=== PATIENT | male | born 1995 | race Caucasian/White ===

== ENCOUNTER 2016-08-01 11:50 | Emergency (ER) | payer OTHER ==
[~2016-08-01] VITALS: Ht 182.9 cm; Wt 89.1 kg
[2016-08-01 11:55] VITALS: TEMP 97.9
[2016-08-01] MEDS ORDERED: NORCO 325 MG-51 TAB PO (14:33)
[2016-08-01] MEDS ORDERED: CEPHALEXIN500 M1 PO (14:33)
[2016-08-01] MEDS ORDERED: ZOFRAN 4MG T4 MG/TAB PO (14:59)
[2016-08-01 15:00] VITALS: BP 136/63; PULSE 77
== END 2016-08-01 15:00 | disposition home or self-care (01) ==
LOC: COL.ER 11:50
DX: S02.2XXA Fracture of nasal bones, initial encounter for closed fracture (principal); S01.21XA Laceration without foreign body of nose, initial encounter; Y04.0XXA Assault by unarmed brawl or fight, initial encounter; Y92.414 Local residential or business street as the place of occurrence of the external cause
CPT/HCPCS: J1170

== ENCOUNTER 2016-08-03 00:50 | Emergency (ER) | payer OTHER ==
[~2016-08-03] VITALS: Ht 182.9 cm; Wt 88.6 kg
[~2016-08-03 00:50] MED LIST: CEPHALEXIN500 M1 PO; NORCO 325 MG-51 TAB PO; ZOFRAN 4MG T4 MG/TAB PO
[2016-08-03 00:53] VITALS: BP 148/91; TEMP 98.2
[2016-08-03] MEDS ORDERED: ULTRAM 50MG TAB50 MG PO (01:09)
[2016-08-03] MEDS ORDERED: PERCOCET 325 MG1 TA2 PO (01:09)
[2016-08-03 01:18] VITALS: PULSE 75
== END 2016-08-03 01:19 | disposition home or self-care (01) ==
LOC: COL.ER 00:50
DX: S02.2XXD Fracture of nasal bones, subsequent encounter for fracture with routine healing (principal); Y04.0XXD Assault by unarmed brawl or fight, subsequent encounter; S01.21XD Laceration without foreign body of nose, subsequent encounter
CPT/HCPCS: J1170

== ENCOUNTER 2016-09-06 17:15 | Emergency (ER) | payer OTHER ==
[~2016-09-06] VITALS: Ht 182.9 cm; Wt 90.9 kg
[~2016-09-06 17:15] MED LIST changes: +PERCOCET 325 MG1 TA2 PO; +ULTRAM 50MG TAB50 MG PO
[2016-09-06 17:16] VITALS: TEMP 98.1
[2016-09-06 17:49] LABS: PH 6 (5-8); SQUAMOUS EPITHELIAL 0-2 /hpf; URINE APPEARANCE Clear; URINE BACTERIA None Seen /hpf; URINE BILIRUBIN Negative (NEGATIVE); URINE BLOOD 3+ (NEGATIVE); URINE COLOR Yellow; URINE GLUCOSE Negative (NEGATIVE); URINE KETONE Negative (NEGATIVE); URINE RBC >50 /hpf; URINE UROBILINOGEN Negative (NEGATIVE); URINE WBC 0-2 /hpf
[2016-09-06 17:56] LABS: BASO % 0.4 % (0.0-2.0); EOS # 0.1 (0.0-0.7); EOS % 0.6 % (0-4.0); GRAN # 6.7 (1.4-6.5); GRAN % 69.9 % (42.2-75.2); HEMOGLOBIN 15.1 g/dl (13.5-18.0); LYMPH # 1.9 (1.2-3.4); LYMPH % 20.2 % (20.0-51.0); MEAN CELL VOLUME 87 fl (80.0-100.0); MEAN CORPUSCULAR HEMOGLOBIN 31 pg (27.0-31.0); MEAN CORPUSCULAR HGB CONC 35 g/dl (33.0-37.0); MEAN PLATELET VOLUME 10.3 fl (7.4-10.4); MONO # 0.8 (0.1-0.6); MONO % 8.6 % (1.7-9.3); PLATELET COUNT 274 K/mm3 (130-400); RED BLOOD COUNT 4.93 M/mm3 (4.20-5.60); REDCELL DISTRIBUTION WIDTH-CV 11.9 % (11.5-14.5); WHITE BLOOD COUNT 9.6 K/mm3 (4.8-10.8)
[2016-09-06 18:09] LABS: ALBUMIN 4.6 gm/dL (3.5-5.0); BILIRUBIN,TOTAL 0.7 mg/dL (0.0-1.0); CALCIUM 9.5 mg/dL (8.4-10.2); CREATININE, serum 0.88 mg/dL (0.66-1.25); POTASSIUM 3.8 mmol/L (3.4-5.0); TOTAL PROTEIN 8.4 gm/dL (6.4-8.2)
[2016-09-06 19:45] VITALS: BP 135/87; PULSE 87
== END 2016-09-06 19:45 | disposition home or self-care (01) ==
LOC: COL.ER 17:15
PROVIDERS: Emergency Medicine
DX: R10.31 Right lower quadrant pain (principal); N20.0 Calculus of kidney; Z87.442 Personal history of urinary calculi; K80.20 Calculus of gallbladder without cholecystitis without obstruction
CPT/HCPCS: J1885; J2765; J3010; J7030

== ENCOUNTER 2016-11-09 08:35 | Emergency (ER) | payer OTHER ==
[~2016-11-09] VITALS: Ht 182.9 cm; Wt 90.9 kg
[2016-11-09 08:37] VITALS: BP 138/83; PULSE 73; TEMP 98
[2016-11-09] MEDS ORDERED: ULTRAM 50MG TAB50 MG PO (09:34)
== END 2016-11-09 09:45 | disposition home or self-care (01) ==
LOC: COL.ER 08:35
DX: S61.012A Laceration without foreign body of left thumb without damage to nail, initial encounter (principal); W45.8XXA Other foreign body or object entering through skin, initial encounter; F17.210 Nicotine dependence, cigarettes, uncomplicated

== ENCOUNTER 2016-12-17 14:45 | Emergency (ER) | payer OTHER ==
[~2016-12-17] VITALS: Ht 182.9 cm; Wt 89.5 kg
[2016-12-17 14:48] VITALS: BP 136/77; TEMP 98.1
[2016-12-17] MEDS ORDERED: MOTRIN 800800 MG/TAB PO (18:02)
[2016-12-17 18:19] VITALS: PULSE 82
== END 2016-12-17 18:20 | disposition home or self-care (01) ==
LOC: COL.ER 14:45
DX: S90.111A Contusion of right great toe without damage to nail, initial encounter (principal); W22.8XXA Striking against or struck by other objects, initial encounter; Y92.89 Other specified places as the place of occurrence of the external cause
CPT/HCPCS: J1170; J2270

== ENCOUNTER 2017-01-21 18:03 | Emergency (ER) | payer OTHER ==
[~2017-01-21] VITALS: Ht 182.9 cm; Wt 90.9 kg
[~2017-01-21 18:03] MED LIST changes: +MOTRIN 800800 MG/TAB PO
[2017-01-21 18:05] VITALS: BP 144/79; PULSE 86; TEMP 100.1
[2017-01-21] MEDS ORDERED: BACTRIM DS 8001 TAB PO (19:33)
[2017-01-21] MEDS ORDERED: NORCO 325 MG-7.1 TAB PO (19:34)
== END 2017-01-21 19:43 | disposition home or self-care (01) ==
LOC: COL.ER 18:03
DX: L05.01 Pilonidal cyst with abscess (principal); F17.210 Nicotine dependence, cigarettes, uncomplicated; F12.90 Cannabis use, unspecified, uncomplicated

== ENCOUNTER 2017-06-20 16:14 | Inpatient (IN) | payer SELFPAY ==
[~2017-06-20] VITALS: Ht 182.9 cm; Wt 77.6 kg
[~2017-06-20 16:14] MED LIST changes: +BACTRIM DS 8001 TAB PO; +NORCO 325 MG-7.1 TAB PO
[2017-06-20 16:44] LABS: HEMATOCRIT 48.2 % (42.0-52.0); HEMOGLOBIN 16.3 g/dl (13.5-18.0); MEAN CELL VOLUME 87 fl (80.0-100.0); MEAN CORPUSCULAR HEMOGLOBIN 29 pg (27.0-31.0); MEAN CORPUSCULAR HGB CONC 34 g/dl (33.0-37.0); MEAN PLATELET VOLUME 9.8 fl (7.4-10.4); PLATELET COUNT 264 K/mm3 (130-400); RED BLOOD COUNT 5.56 M/mm3 (4.20-5.60); WHITE BLOOD COUNT 3.5 K/mm3 (4.8-10.8)
[2017-06-20 16:46] LABS: ADD PATHOLOGY DIFF REVIEW NO
[2017-06-20 16:53] LABS: ADJUSTED CALCIUM 9.2 mg/dL (8.4-10.2); ALBUMIN 4.9 gm/dL (3.5-5.0); BILIRUBIN,TOTAL 1.1 mg/dL (0.0-1.0); C-REACTIVE PROTEIN 0.8 mg/dL (0.0-0.9); CALCIUM 9.9 mg/dL (8.4-10.2); CREATININE, serum 0.86 mg/dL (0.66-1.25); POTASSIUM 3.9 mmol/L (3.4-5.0); TOTAL PROTEIN 8.5 gm/dL (6.4-8.2)
[2017-06-20 17:13] LABS: COLLECTION METHOD CLEAN CATCH
[2017-06-20 17:25] LABS: MUCOUS Present /lpf; PH 7 (5-8); SQUAMOUS EPITHELIAL None Seen /hpf; URINE APPEARANCE Clear; URINE BACTERIA None Seen /hpf; URINE BILIRUBIN Negative (NEGATIVE); URINE BLOOD Negative (NEGATIVE); URINE COLOR Yellow; URINE GLUCOSE Negative (NEGATIVE); URINE KETONE Negative (NEGATIVE); URINE LEUKOCYTE ESTERASE Negative (NEGATIVE); URINE PROTEIN(semi-quant) Negative (NEGATIVE); URINE RBC None Seen /hpf; URINE UROBILINOGEN Negative (NEGATIVE); URINE WBC None Seen /hpf
[2017-06-20 17:37] LABS: AMPHETAMINE URINE POSITIVE; BARBITURATES URINE NEGATIVE; BENZODIAZEPINES URINE NEGATIVE; BUPRENORPHINE URINE NEGATIVE; METHADONE URINE NEGATIVE; OPIATES URINE POSITIVE; OXYCODONE URINE NEGATIVE; PHENCYCLIDINE URINE NEGATIVE; PROPOXYPHENE URINE NEGATIVE; THC CANNABINOIDS URINE POSITIVE; TRICYCLIC ANTIDEPRESS URINE NEGATIVE
[2017-06-20 17:54] LABS: BAND 34 % (0-10); LYMPHOCYTE 10 % (20.0-51.0); METAMYELOCYTE 1 % (0-0); NEUTROPHILS 55 % (42.0-75.2); PLATELET ESTIMATE NORMAL (NORMAL); TOTAL CELLS COUNTED 100
[2017-06-20 21:50] VITALS: BP 119/65; PULSE 130; TEMP 99.6
[2017-06-21 03:59] LABS: CHLAMYDIA/TRACH by PCR Male NOT DETECTED; Neisseria Gon by PCR Male NOT DETECTED
[2017-06-21 05:38] VITALS: BP 134/83; PULSE 94; TEMP 98.4
[2017-06-21 07:00] LABS: CREATININE, serum 0.95 mg/dL (0.66-1.25); POTASSIUM 3.7 mmol/L (3.4-5.0)
[2017-06-21 07:08] LABS: HEMATOCRIT 37.2 % (42.0-52.0); MEAN CELL VOLUME 87 fl (80.0-100.0); MEAN CORPUSCULAR HEMOGLOBIN 29 pg (27.0-31.0); MEAN CORPUSCULAR HGB CONC 33 g/dl (33.0-37.0); MEAN PLATELET VOLUME 9.8 fl (7.4-10.4); PLATELET COUNT 203 K/mm3 (130-400); RED BLOOD COUNT 4.29 M/mm3 (4.20-5.60)
[2017-06-21 07:19] LABS: WHITE BLOOD COUNT 25.2 K/mm3 (4.8-10.8)
[2017-06-21 07:20] LABS: HEMOGLOBIN 12.4 g/dl (13.5-18.0)
[2017-06-21 07:21] LABS: ADD PATHOLOGY DIFF REVIEW NO
[2017-06-21 07:39] VITALS: BP 133/68; PULSE 90; TEMP 98.1
[2017-06-21 07:39] LABS: BAND 58 % (0-10); LYMPHOCYTE 9 % (20.0-51.0); NEUTROPHILS 28 % (42.0-75.2); TOTAL CELLS COUNTED 100
[2017-06-21 07:40] LABS: PLATELET ESTIMATE NORMAL (NORMAL)
[2017-06-21 07:56] LABS: HIV 1/2 Antibodies Non-Reactive; HIV-1p24 Antigen Non-Reactive
[2017-06-21 11:36] VITALS: BP 126/70; PULSE 81; TEMP 98.1
[2017-06-21 15:43] VITALS: BP 132/56; PULSE 78; TEMP 98.1
[2017-06-21 20:39] VITALS: BP 133/74; PULSE 96; TEMP 98.3
[2017-06-22 00:17] VITALS: BP 128/78; PULSE 63; TEMP 98.4
[2017-06-22 05:14] VITALS: BP 114/64; PULSE 55; TEMP 97.7
[2017-06-22 06:37] LABS: BASO # 0.1 (0.0-0.2); BASO % 0.4 % (0.0-2.0); EOS # 0.2 (0.0-0.7); EOS % 1.5 % (0-4.0); GRAN # 9.8 (1.4-6.5); LYMPH # 3.4 (1.2-3.4); LYMPH % 22.9 % (20.0-51.0); MEAN CELL VOLUME 88 fl (80.0-100.0); MEAN CORPUSCULAR HGB CONC 33 g/dl (33.0-37.0); MEAN PLATELET VOLUME 11.2 fl (7.4-10.4); MONO # 1.2 (0.1-0.6); MONO % 8.3 % (1.7-9.3); PLATELET COUNT 154 K/mm3 (130-400); RED BLOOD COUNT 3.94 M/mm3 (4.20-5.60); WHITE BLOOD COUNT 14.9 K/mm3 (4.8-10.8)
[2017-06-22 06:38] LABS: HEMATOCRIT 34.6 % (42.0-52.0); HEMOGLOBIN 11.4 g/dl (13.5-18.0); MEAN CORPUSCULAR HEMOGLOBIN 29 pg (27.0-31.0)
[2017-06-22 06:59] LABS: CALCIUM 8.1 mg/dL (8.4-10.2); CREATININE, serum 0.87 mg/dL (0.66-1.25); POTASSIUM 3.2 mmol/L (3.4-5.0)
[2017-06-22 07:39] VITALS: BP 127/79; PULSE 57; TEMP 97.8
[2017-06-22 11:26] VITALS: BP 135/81; PULSE 51; TEMP 97.8
[2017-06-22] MEDS ORDERED: NORCO 325 MG-51 TAB PO (14:35)
[2017-06-22] MEDS ORDERED: LEVAQUIN 5500 MG/TA1 PO (14:35)
== END 2017-06-22 15:00 | disposition left against medical advice (07) | DRG 728 ==
LOC: COL.ER 16:14 → MEDICAL 20:35 → PEDS 06-21 07:55 → MEDICAL 06-21 07:55
PROVIDERS: Emergency Medicine; Internal Medicine; Nurse Practitioner; Physician Assistant
DX: N45.1 Epididymitis (principal); R00.0 Tachycardia, unspecified; F11.10 Opioid abuse, uncomplicated; F15.10 Other stimulant abuse, uncomplicated; F14.10 Cocaine abuse, uncomplicated; F12.10 Cannabis abuse, uncomplicated
CPT/HCPCS: 86780; 99222-AI; 99239; G0378; J1170; J1650; J1885; J2060; J2405; J2543; J3370; J7030; J7050; Q9967

== ENCOUNTER 2017-11-20 15:13 | Emergency (ER) | payer SELFPAY ==
[~2017-11-20] VITALS: Ht 182.9 cm; Wt 72.7 kg
[~2017-11-20 15:13] MED LIST changes: +LEVAQUIN 5500 MG/TA1 PO
[2017-11-20 15:17] VITALS: BP 134/92; PULSE 122; TEMP 98.1
[2017-11-20] MEDS ORDERED: SEPTRA DS 8001 TAB PO ×2 (16:08→16:31)
[2017-11-20] MEDS ORDERED: ULTRAM 50MG TAB50 MG PO (16:08)
[2017-11-20] MEDS ORDERED: PERCOCET 325 MG1 TA2 PO (16:31)
== END 2017-11-20 16:34 | disposition home or self-care (01) ==
LOC: COL.ER 15:13
DX: L05.01 Pilonidal cyst with abscess (principal); B19.20 Unspecified viral hepatitis C without hepatic coma; F17.210 Nicotine dependence, cigarettes, uncomplicated; F12.90 Cannabis use, unspecified, uncomplicated; Z98.890 Other specified postprocedural states

== ENCOUNTER 2017-12-09 01:50 | Emergency (ER) | payer SELFPAY ==
[~2017-12-09] VITALS: Ht 182.9 cm; Wt 72.8 kg
[~2017-12-09 01:50] MED LIST changes: +SEPTRA DS 8001 TAB PO
[2017-12-09 01:53] VITALS: BP 130/95; PULSE 99; TEMP 97.4
[2017-12-09] MEDS ORDERED: BACTRIM DS 8001 TAB PO (02:29)
== END 2017-12-09 03:05 | disposition home or self-care (01) ==
LOC: COL.ER 01:50
DX: L02.413 Cutaneous abscess of right upper limb (principal); F17.210 Nicotine dependence, cigarettes, uncomplicated
CPT/HCPCS: J1170

== ENCOUNTER 2017-12-09 18:33 | Emergency (ER) | payer SELFPAY ==
[~2017-12-09] VITALS: Ht 182.9 cm; Wt 72.7 kg
[2017-12-09 18:35] VITALS: TEMP 98
[2017-12-09 19:18] VITALS: BP 141/77
[2017-12-09 21:50] VITALS: PULSE 82
== END 2017-12-09 21:51 | disposition home or self-care (01) ==
LOC: COL.ER 18:33
DX: L02.414 Cutaneous abscess of left upper limb (principal); F17.210 Nicotine dependence, cigarettes, uncomplicated; F12.90 Cannabis use, unspecified, uncomplicated
CPT/HCPCS: J0696; J7030

== ENCOUNTER 2018-02-25 23:01 | Emergency (ER) | payer SELFPAY ==
[~2018-02-25] VITALS: Ht 182.9 cm; Wt 69.5 kg
[2018-02-25 23:12] VITALS: TEMP 98.5
[2018-02-25 23:56] LABS: BASO # 0.1 (0.0-0.2); BASO % 0.4 % (0.0-2.0); EOS # 0.1 (0.0-0.7); EOS % 0.8 % (0-4.0); GRAN # 6.1 (1.4-6.5); GRAN % 54.6 % (42.2-75.2); HEMOGLOBIN 12.5 g/dl (13.5-18.0); LYMPH # 3.7 (1.2-3.4); LYMPH % 32.9 % (20.0-51.0); MEAN CELL VOLUME 85 fl (80.0-100.0); MEAN CORPUSCULAR HEMOGLOBIN 29 pg (27.0-31.0); MEAN CORPUSCULAR HGB CONC 34 g/dl (33.0-37.0); MEAN PLATELET VOLUME 9.4 fl (7.4-10.4); MONO # 1.2 (0.1-0.6); MONO % 10.7 % (1.7-9.3); PLATELET COUNT 281 K/mm3 (130-400); RED BLOOD COUNT 4.32 M/mm3 (4.20-5.60); REDCELL DISTRIBUTION WIDTH-CV 14.3 % (11.5-14.5)
[2018-02-25 23:57] LABS: HEMATOCRIT 36.9 % (42.0-52.0)
[2018-02-26 00:15] LABS: ERYTHROCYTE SEDIMENTATION RATE 6 mm/hr (0-15)
[2018-02-26 00:56] VITALS: BP 146/72; PULSE 89
== END 2018-02-26 01:06 | disposition home or self-care (01) ==
LOC: COL.ER 23:01
PROVIDERS: Nurse Practitioner
DX: M25.531 Pain in right wrist (principal); F17.210 Nicotine dependence, cigarettes, uncomplicated; Z86.19 Personal history of other infectious and parasitic diseases
CPT/HCPCS: J1170

== ENCOUNTER 2018-03-12 18:40 | Emergency (ER) | payer SELFPAY ==
[~2018-03-12] VITALS: Ht 182.9 cm; Wt 70.0 kg
[2018-03-12 18:44] VITALS: BP 156/85; PULSE 96; TEMP 98.7
[2018-03-12] MEDS ORDERED: CEPHALEXIN500 M1 PO (19:12)
[2018-03-12] MEDS ORDERED: BACTRIM DS 8001 TAB PO (19:12)
== END 2018-03-12 19:23 | disposition home or self-care (01) ==
LOC: COL.ER 18:40
DX: L03.115 Cellulitis of right lower limb (principal); L03.116 Cellulitis of left lower limb; F17.210 Nicotine dependence, cigarettes, uncomplicated

== ENCOUNTER 2018-03-18 18:34 | Inpatient (IN) | payer OTHER ==
[~2018-03-18] VITALS: Ht 182.9 cm; Wt 173.9 kg
[2018-03-18] VITALS (51 sets, daily range): BP systolic 100; BP diastolic 53; PULSE 91; TEMP 100.3; O2SAT 65–100
[2018-03-18 18:45] LABS: HEMATOCRIT 36.1 % (42.0-52.0); HEMOGLOBIN 12.6 g/dl (13.5-18.0); MEAN CELL VOLUME 84 fl (80.0-100.0); MEAN CORPUSCULAR HEMOGLOBIN 29 pg (27.0-31.0); MEAN CORPUSCULAR HGB CONC 35 g/dl (33.0-37.0); MEAN PLATELET VOLUME 8.9 fl (7.4-10.4); PLATELET COUNT 265 K/mm3 (130-400); REDCELL DISTRIBUTION WIDTH-CV 13.2 % (11.5-14.5)
[2018-03-18 19:06] LABS: ALANINE AMINOTRANSFERASE 42 U/L (21-72); ALBUMIN 3.4 gm/dL (3.5-5.0); ALCOHOL(ethanol),MEDICAL < 10 mg/dL; ALKALINE PHOSPHATASE 104 U/L (50-136); ANION GAP 11 mmol/L (7-16); AST,SGOT 48 U/L (15-37); BILIRUBIN,TOTAL 1.1 mg/dL (0.0-1.0); BLOOD UREA NITROGEN 24 mg/dL (9-20); C-REACTIVE PROTEIN 2.4 mg/dL (0.0-0.9); CALCIUM 8.4 mg/dL (8.4-10.2); CARBON DIOXIDE 22 mmol/L (22-30); CHLORIDE 96 mmol/L (98-107); CREATINE KINASE 188 U/L (55-170); CREATININE, serum 1.14 mg/dL (0.66-1.25); GLUCOSE 92 mg/dL (74-106); POTASSIUM 3.5 mmol/L (3.4-5.0); SODIUM 129 mmol/L (137-145); TOTAL PROTEIN 6.9 gm/dL (6.4-8.2)
[2018-03-19] VITALS (661 sets, daily range): BP systolic 85–99; BP diastolic 31–54; PULSE 68–95; TEMP 97.9–99.5; O2SAT 66–100
[2018-03-19 05:55] LABS: HEMOGLOBIN 10.7 g/dl (13.5-18.0); MEAN CELL VOLUME 86 fl (80.0-100.0); MEAN CORPUSCULAR HEMOGLOBIN 29 pg (27.0-31.0); MEAN CORPUSCULAR HGB CONC 34 g/dl (33.0-37.0); MEAN PLATELET VOLUME 9.2 fl (7.4-10.4); PLATELET COUNT 232 K/mm3 (130-400); RED BLOOD COUNT 3.66 M/mm3 (4.20-5.60); REDCELL DISTRIBUTION WIDTH-CV 13.7 % (11.5-14.5)
[2018-03-19 05:58] LABS: HEMATOCRIT 31.5 % (42.0-52.0)
[2018-03-19 06:08] LABS: CREATININE, serum 1.22 mg/dL (0.66-1.25); POTASSIUM 3.6 mmol/L (3.4-5.0)
[2018-03-19 06:57] LABS: BAND 56 % (0-10); LYMPHOCYTE 3 % (20.0-51.0); NEUTROPHILS 40 % (42.0-75.2); PLATELET ESTIMATE NORMAL (NORMAL)
[2018-03-19 09:35] LABS: TRICYCLIC ANTIDEPRESS URINE NEGATIVE
[2018-03-19 10:43] LABS: COLLECTION METHOD CLEAN CATCH
[2018-03-19 10:48] LABS: MUCOUS Present /lpf; PH 5 (5-8); SQUAMOUS EPITHELIAL None Seen /hpf; URINE APPEARANCE Clear; URINE BACTERIA None Seen /hpf; URINE BILIRUBIN Negative (NEGATIVE); URINE BLOOD 1+ (NEGATIVE); URINE COLOR Yellow; URINE GLUCOSE Negative (NEGATIVE); URINE KETONE Negative (NEGATIVE); URINE LEUKOCYTE ESTERASE Negative (NEGATIVE); URINE NITRATE Negative (NEGATIVE); URINE PROTEIN(semi-quant) Negative (NEGATIVE); URINE RBC 0-2 /hpf; URINE UROBILINOGEN Negative (NEGATIVE)
[2018-03-20] VITALS (838 sets, daily range): BP systolic 91–124; BP diastolic 42–80; PULSE 66–96; TEMP 97.3–99.1; O2SAT 76–100
[2018-03-20 10:16] LABS: MEAN CELL VOLUME 87 fl (80.0-100.0); MEAN CORPUSCULAR HGB CONC 33 g/dl (33.0-37.0); MEAN PLATELET VOLUME 11.2 fl (7.4-10.4); PLATELET COUNT 191 K/mm3 (130-400); RED BLOOD COUNT 3.34 M/mm3 (4.20-5.60); REDCELL DISTRIBUTION WIDTH-CV 14.5 % (11.5-14.5)
[2018-03-20 10:18] LABS: HEMATOCRIT 29.2 % (42.0-52.0); HEMOGLOBIN 9.7 g/dl (13.5-18.0); MEAN CORPUSCULAR HEMOGLOBIN 29 pg (27.0-31.0)
[2018-03-20 10:28] LABS: ALANINE AMINOTRANSFERASE 36 U/L (21-72); ALBUMIN 2.4 gm/dL (3.5-5.0); ALKALINE PHOSPHATASE 58 U/L (50-136); ANION GAP 9 mmol/L (7-16); AST,SGOT 34 U/L (15-37); BILIRUBIN,TOTAL < 0.1 mg/dL (0.0-1.0); BLOOD UREA NITROGEN 16 mg/dL (9-20); CALCIUM 7.6 mg/dL (8.4-10.2); CARBON DIOXIDE 20 mmol/L (22-30); CHLORIDE 110 mmol/L (98-107); CREATININE, serum 0.82 mg/dL (0.66-1.25); GLUCOSE 84 mg/dL (74-106); POTASSIUM 3.7 mmol/L (3.4-5.0); SODIUM 139 mmol/L (137-145); TOTAL PROTEIN 5.5 gm/dL (6.4-8.2)
[2018-03-20 10:37] LABS: BAND 35 % (0-10); LYMPHOCYTE 20 % (20.0-51.0); NEUTROPHILS 41 % (42.0-75.2)
[2018-03-20 10:38] LABS: BURR CELLS 1+; PLATELET ESTIMATE NORMAL (NORMAL)
[2018-03-21] VITALS (47 sets, daily range): BP systolic 125–146; BP diastolic 64–96; PULSE 68–94; TEMP 98.3–99.2; O2SAT 89–97
[2018-03-21 03:37] LABS: HEMOGLOBIN 10.3 g/dl (13.5-18.0); MEAN CELL VOLUME 86 fl (80.0-100.0); MEAN CORPUSCULAR HEMOGLOBIN 29 pg (27.0-31.0); MEAN CORPUSCULAR HGB CONC 34 g/dl (33.0-37.0); MEAN PLATELET VOLUME 10.4 fl (7.4-10.4); PLATELET COUNT 249 K/mm3 (130-400); RED BLOOD COUNT 3.53 M/mm3 (4.20-5.60); REDCELL DISTRIBUTION WIDTH-CV 14.1 % (11.5-14.5)
[2018-03-21 03:39] LABS: HEMATOCRIT 30.5 % (42.0-52.0)
[2018-03-21 03:47] LABS: ALBUMIN 2.5 gm/dL (3.5-5.0); BILIRUBIN,TOTAL 0.1 mg/dL (0.0-1.0); CALCIUM 7.6 mg/dL (8.4-10.2); CREATININE, serum 0.81 mg/dL (0.66-1.25); POTASSIUM 3.3 mmol/L (3.4-5.0); TOTAL PROTEIN 5.8 gm/dL (6.4-8.2)
[2018-03-21 04:01] LABS: BAND 21 % (0-10); LYMPHOCYTE 18 % (20.0-51.0); METAMYELOCYTE 1 % (0-0); NEUTROPHILS 56 % (42.0-75.2); PLATELET ESTIMATE NORMAL (NORMAL)
[2018-03-21 04:02] LABS: BURR CELLS 1+
[2018-03-21 12:46] LABS: HIV 1/2 Antibodies Non-Reactive; HIV-1p24 Antigen Non-Reactive
[2018-03-22 00:24] VITALS: PULSE 68
[2018-03-22 04:20] VITALS: BP 116/68; PULSE 68; TEMP 98.2
[2018-03-22 06:49] LABS: MEAN CELL VOLUME 86 fl (80.0-100.0); MEAN CORPUSCULAR HEMOGLOBIN 28 pg (27.0-31.0); MEAN CORPUSCULAR HGB CONC 33 g/dl (33.0-37.0); MEAN PLATELET VOLUME 10.2 fl (7.4-10.4); PLATELET COUNT 300 K/mm3 (130-400); RED BLOOD COUNT 3.87 M/mm3 (4.20-5.60); REDCELL DISTRIBUTION WIDTH-CV 13.7 % (11.5-14.5)
[2018-03-22 06:50] LABS: HEMATOCRIT 33.2 % (42.0-52.0)
[2018-03-22 06:57] LABS: CALCIUM 8.1 mg/dL (8.4-10.2); CREATININE, serum 0.83 mg/dL (0.66-1.25); POTASSIUM 3.8 mmol/L (3.4-5.0)
[2018-03-22 07:09] VITALS: BP 138/74; PULSE 64; TEMP 98.5
[2018-03-22 07:24] LABS: BAND 4 % (0-10); EOSINOPHIL 2 % (0-4); LYMPHOCYTE 24 % (20.0-51.0); MYELOCYTE 1 % (0-0); NEUTROPHILS 62 % (42.0-75.2); PLATELET ESTIMATE NORMAL (NORMAL)
[2018-03-22 11:16] VITALS: BP 139/79; PULSE 74; TEMP 98.4
[2018-03-22 15:43] VITALS: BP 136/78; PULSE 65; TEMP 98.1
[2018-03-22 19:59] VITALS: BP 148/90; PULSE 55; TEMP 98.2
[2018-03-23 00:30] VITALS: BP 132/78; PULSE 74; TEMP 97.9
[2018-03-23 04:08] VITALS: BP 133/82; PULSE 58; TEMP 98.2
[2018-03-23 06:26] LABS: HEMOGLOBIN 11.9 g/dl (13.5-18.0); MEAN CELL VOLUME 86 fl (80.0-100.0); MEAN CORPUSCULAR HEMOGLOBIN 29 pg (27.0-31.0); MEAN CORPUSCULAR HGB CONC 34 g/dl (33.0-37.0); MEAN PLATELET VOLUME 10.4 fl (7.4-10.4); PLATELET COUNT 331 K/mm3 (130-400); RED BLOOD COUNT 4.12 M/mm3 (4.20-5.60); REDCELL DISTRIBUTION WIDTH-CV 13.3 % (11.5-14.5)
[2018-03-23 06:32] LABS: HEMATOCRIT 35.4 % (42.0-52.0)
[2018-03-23 06:34] LABS: CALCIUM 8.5 mg/dL (8.4-10.2); CREATININE, serum 0.92 mg/dL (0.66-1.25); POTASSIUM 3.8 mmol/L (3.4-5.0)
[2018-03-23 07:14] LABS: BAND 15 % (0-10); BASOPHIL 1 % (0-2); EOSINOPHIL 2 % (0-4); LYMPHOCYTE 28 % (20.0-51.0); NEUTROPHILS 49 % (42.0-75.2); PLATELET ESTIMATE NORMAL (NORMAL)
[2018-03-23 07:34] VITALS: BP 134/72; PULSE 67; TEMP 98.3
[2018-03-23 07:47] LABS: MAGNESIUM 1.7 mg/dL (1.6-2.3)
[2018-03-23 11:33] VITALS: BP 134/84; PULSE 66; TEMP 98.2
[2018-03-23 16:34] VITALS: BP 127/74; PULSE 56; TEMP 98.3
[2018-03-23 19:36] VITALS: BP 138/67; PULSE 59; TEMP 98.5
[2018-03-24 00:33] VITALS: BP 128/68; PULSE 53; TEMP 98.5
[2018-03-24 03:50] VITALS: BP 130/67; PULSE 50; TEMP 98.5
[2018-03-24 07:09] VITALS: BP 140/78; PULSE 57; TEMP 97.8
[2018-03-24 07:40] LABS: HEMOGLOBIN 11.9 g/dl (13.5-18.0); MEAN CELL VOLUME 88 fl (80.0-100.0); MEAN CORPUSCULAR HEMOGLOBIN 29 pg (27.0-31.0); MEAN CORPUSCULAR HGB CONC 33 g/dl (33.0-37.0); MEAN PLATELET VOLUME 10.5 fl (7.4-10.4); PLATELET COUNT 345 K/mm3 (130-400); RED BLOOD COUNT 4.13 M/mm3 (4.20-5.60); REDCELL DISTRIBUTION WIDTH-CV 13.7 % (11.5-14.5)
[2018-03-24 07:42] LABS: HEMATOCRIT 36.3 % (42.0-52.0)
[2018-03-24 07:55] LABS: CALCIUM 8.7 mg/dL (8.4-10.2); CREATININE, serum 0.88 mg/dL (0.66-1.25); POTASSIUM 3.9 mmol/L (3.4-5.0)
[2018-03-24 08:03] LABS: BAND 21 % (0-10); EOSINOPHIL 1 % (0-4); LYMPHOCYTE 35 % (20.0-51.0); NEUTROPHILS 35 % (42.0-75.2)
[2018-03-24 08:05] LABS: HYPOCHROMIA 1+; PLATELET ESTIMATE NORMAL (NORMAL)
[2018-03-24] MEDS ORDERED: CEFTRIAXON2 GM/50 ML IV (12:13)
[2018-03-24] MEDS ORDERED: NICODERM C21 MG/PATC TD (12:14)
[2018-03-24] MEDS ORDERED: EFFEXOR XR75 MG/CAP PO (12:16)
[2018-03-24] MEDS ORDERED: MELAT3MGTAB PO (12:20)
[2018-03-24] MEDS ORDERED: SEROQUEL 2525 MG/TAB PO (12:20)
[2018-03-24 12:33] VITALS: BP 131/66; PULSE 65; TEMP 99.2
[2018-03-24 17:39] VITALS: BP 166/77; PULSE 58; TEMP 98.8
== END 2018-03-24 19:30 | disposition home or self-care (01) | DRG 871 ==
LOC: COL.ER 18:34 → ICU 19:32 → MEDICAL 03-19 13:25 → ICU 03-19 13:26 → MEDICAL 03-21 16:00
PROVIDERS: Emergency Medicine; Hospitalist; Nurse Practitioner; Physician Assistant
PROC: 009U3ZX Drainage of Spinal Canal, Percutaneous Approach, Diagnostic (ICD-10-PCS; principal; 2018-03-19)
DX: A41.59 Other Gram-negative sepsis (principal); I33.0 Acute and subacute infective endocarditis; F12.10 Cannabis abuse, uncomplicated; F17.210 Nicotine dependence, cigarettes, uncomplicated; F19.19 Other psychoactive substance abuse with unspecified psychoactive substance-induced disorder; E83.42 Hypomagnesemia; E87.6 Hypokalemia; F11.10 Opioid abuse, uncomplicated
CPT/HCPCS: 99223-AI; 99232-AI; 99233-AI; 99239; G0378; G9654; J0696; J1644; J1885; J1940; J2543; J2704; J3010; J3370; J3475; J7030; J7040; J7050; J7120; Q9967

== ENCOUNTER 2018-04-03 10:00 | Outpatient (RCR) | payer OTHER ==
[2018-03-25 09:35] VITALS: BP 132/75; PULSE 102; TEMP 98
[2018-03-27 08:40] VITALS: BP 164/94; PULSE 79; TEMP 99
[2018-03-28 10:13] LABS: HEMATOCRIT 37.5 % (42.0-52.0); HEMOGLOBIN 12.6 g/dl (13.5-18.0); MEAN CELL VOLUME 87 fl (80.0-100.0); MEAN CORPUSCULAR HEMOGLOBIN 29 pg (27.0-31.0); MEAN CORPUSCULAR HGB CONC 34 g/dl (33.0-37.0); MEAN PLATELET VOLUME 9.3 fl (7.4-10.4); PLATELET COUNT 441 K/mm3 (130-400); RED BLOOD COUNT 4.32 M/mm3 (4.20-5.60); REDCELL DISTRIBUTION WIDTH-CV 14.3 % (11.5-14.5)
[2018-03-28 10:20] VITALS: BP 170/84; PULSE 88; TEMP 98.3
[2018-03-28 10:29] LABS: ALBUMIN 4.2 gm/dL (3.5-5.0); BILIRUBIN,TOTAL 0.7 mg/dL (0.0-1.0); C-REACTIVE PROTEIN 0.8 mg/dL (0.0-0.9); CALCIUM 9.4 mg/dL (8.4-10.2); CREATININE, serum 0.83 mg/dL (0.66-1.25); POTASSIUM 3.9 mmol/L (3.4-5.0); TOTAL PROTEIN 8.5 gm/dL (6.4-8.2)
[2018-03-28 10:45] LABS: ERYTHROCYTE SEDIMENTATION RATE 21 mm/hr (0-15)
[~2018-04-03] VITALS: Ht 182.9 cm; Wt 79.2 kg
[~2018-04-03 10:00] MED LIST changes: +CEFTRIAXON2 GM/50 ML IV; +EFFEXOR XR75 MG/CAP PO; +MELAT3MGTAB PO; +NICODERM C21 MG/PATC TD; +SEROQUEL 2525 MG/TAB PO
== END 2018-04-04 12:27 | disposition left against medical advice (07) ==
LOC: EUO 10:00
PROVIDERS: Hospitalist
DX: I38 Endocarditis, valve unspecified (principal); R78.81 Bacteremia
CPT/HCPCS: J0696

== ENCOUNTER 2018-04-13 08:00 | Outpatient (RCR) | payer OTHER ==
[2018-04-09 08:00] VITALS: BP 124/76; PULSE 53; TEMP 98
[2018-04-10 08:00] VITALS: BP 125/67; PULSE 80; TEMP 98
[2018-04-11 09:35] VITALS: BP 122/64; PULSE 54; TEMP 97.5
[2018-04-11 09:39] LABS: BASO # 0.1 (0.0-0.2); EOS # 0.1 (0.0-0.7); EOS % 1.3 % (0-4.0); GRAN # 2.7 (1.4-6.5); GRAN % 43.7 % (42.2-75.2); HEMATOCRIT 40.9 % (42.0-52.0); HEMOGLOBIN 13.6 g/dl (13.5-18.0); LYMPH # 2.8 (1.2-3.4); LYMPH % 45.6 % (20.0-51.0); MEAN CELL VOLUME 88 fl (80.0-100.0); MEAN CORPUSCULAR HEMOGLOBIN 29 pg (27.0-31.0); MEAN CORPUSCULAR HGB CONC 33 g/dl (33.0-37.0); MONO # 0.5 (0.1-0.6); MONO % 8.1 % (1.7-9.3); PLATELET COUNT 314 K/mm3 (130-400); RED BLOOD COUNT 4.66 M/mm3 (4.20-5.60); REDCELL DISTRIBUTION WIDTH-CV 13.2 % (11.5-14.5)
[2018-04-11 09:51] LABS: ALANINE AMINOTRANSFERASE 47 U/L (21-72); ALBUMIN 3.9 gm/dL (3.5-5.0); ALKALINE PHOSPHATASE 46 U/L (50-136); ANION GAP 6 mmol/L (7-16); AST,SGOT 31 U/L (15-37); BILIRUBIN,TOTAL 0.3 mg/dL (0.0-1.0); BLOOD UREA NITROGEN 14 mg/dL (9-20); CALCIUM 9.3 mg/dL (8.4-10.2); CARBON DIOXIDE 31 mmol/L (22-30); CHLORIDE 99 mmol/L (98-107); CREATININE, serum 0.78 mg/dL (0.66-1.25); GLUCOSE 129 mg/dL (74-106); POTASSIUM 4.1 mmol/L (3.4-5.0); SODIUM 137 mmol/L (137-145); TOTAL PROTEIN 7.5 gm/dL (6.4-8.2)
[2018-04-11 09:58] LABS: ERYTHROCYTE SEDIMENTATION RATE 6 mm/hr (0-15)
[2018-04-11 09:59] LABS: C-REACTIVE PROTEIN < 0.5 mg/dL (0.0-0.9)
[2018-04-12 08:11] VITALS: BP 93/65; PULSE 62; TEMP 97.5
[~2018-04-13] VITALS: Ht 182.9 cm; Wt 77.9 kg
[2018-04-13 09:18] VITALS: BP 132/79; PULSE 70; TEMP 97.4
== END 2018-04-13 10:40 | disposition home or self-care (01) ==
LOC: EUO 08:00
PROVIDERS: Internal Medicine Infectious Disease
DX: I38 Endocarditis, valve unspecified (principal); Z45.2 Encounter for adjustment and management of vascular access device; Z95.9 Presence of cardiac and vascular implant and graft, unspecified
CPT/HCPCS: C1751; J0696

== ENCOUNTER 2018-11-14 20:50 | Emergency (ER) | payer SELFPAY ==
[~2018-11-14] VITALS: Ht 182.9 cm; Wt 86.4 kg
[2018-11-14 21:11] VITALS: TEMP 98
[2018-11-14 22:10] LABS: BASO % 0.2 % (0.0-2.0); EOS % 0.2 % (0-4.0); GRAN # 9.2 (1.4-6.5); GRAN % 67.4 % (42.2-75.2); HEMATOCRIT 41.8 % (42.0-52.0); HEMOGLOBIN 14.1 g/dl (13.5-18.0); LYMPH # 2.9 (1.2-3.4); LYMPH % 21.4 % (20.0-51.0); MEAN CELL VOLUME 87 fl (80.0-100.0); MEAN CORPUSCULAR HEMOGLOBIN 29 pg (27.0-31.0); MEAN CORPUSCULAR HGB CONC 34 g/dl (33.0-37.0); MEAN PLATELET VOLUME 9.6 fl (7.4-10.4); MONO # 1.4 (0.1-0.6); MONO % 10.4 % (1.7-9.3); PLATELET COUNT 364 K/mm3 (130-400); REDCELL DISTRIBUTION WIDTH-CV 12.4 % (11.5-14.5)
[2018-11-14 22:24] LABS: ALBUMIN 4.3 gm/dL (3.5-5.0); BILIRUBIN,TOTAL 0.6 mg/dL (0.0-1.0); C-REACTIVE PROTEIN 3.3 mg/dL (0.0-0.9); CALCIUM 9.3 mg/dL (8.4-10.2); CREATININE, serum 0.83 (0.66-1.25); POTASSIUM 3.4 mmol/L (3.4-5.0); TOTAL PROTEIN 8.2 gm/dL (6.4-8.2)
[2018-11-14] MEDS ORDERED: AMOXICILLIN 8751 TAB PO (22:27)
[2018-11-14] MEDS ORDERED: DOXYCYCLINE HY100 MG PO (22:27)
[2018-11-14 23:54] VITALS: BP 156/80; PULSE 115
== END 2018-11-14 23:54 | disposition home or self-care (01) ==
LOC: COL.ER 20:50
PROVIDERS: Physician Assistant
DX: S61.452A Open bite of left hand, initial encounter (principal); L03.114 Cellulitis of left upper limb; F17.210 Nicotine dependence, cigarettes, uncomplicated; W50.3XXA Accidental bite by another person, initial encounter; Y92.009 Unspecified place in unspecified non-institutional (private) residence as the place of occurrence of the external cause